=== PATIENT | female | born 1980 | race Caucasian/White ===

== ENCOUNTER 2022-01-13 21:42 | Inpatient (IN) ==
[2022-01-13] MEDS ORDERED: OXYTOCIN 30 UNITS/500 ML BAG IV PRN ×2 (22:02→23:44)
[2022-01-13] MEDS ORDERED: LIDOCAINE 1% LOCAL 20 ML VIAL INFIL PRN (22:02)
--- NOTE | 2022-01-13 22:09 | History & Physical Report ---
Date of Service January 13, 2022 Assessment & Plan (1) with 39 completed weeks gestation: (2) Normal labor: Plan admit for labor, fetus category one. desires epidural. arom/pit as indicated . anticipate . History of Present Illness Chief Complaint: contractions Primary Care Provider: ERNIE Reid Patient is a 41yowf with iup at 39 1/7 weeks who presents with increasing contractions. some pink d/c, no lof. +fm. and Delivery Plans AMA >35 weekly NST's @ 36 weeks Hx Thyroid cancer with thyroidectomy 2020 TFT's q 4 weeks Marginal cord insertion OB Labs: Blood Type O Positive 07/07/21 Antibody Screen NEGATIVE 07/07/21 Hemoglobin 10.8 g/dl (12.0-16.0) L 10/27/21 Hematocrit 31.1 % (34.1-44.9) L 10/27/21 Mean Corpuscular Volume 90.8 fL (80-100) 07/07/21 Platelet Count 281 K/uL (130-400) 07/07/21 Rubella IgG Antibody Immune (Immune) 07/07/21 Rapid Plasma Reagin Nonreactive (Nonreactive) 07/07/21 Hepatitis B Surface Antigen. NON-REACTIVE (NON-REACTIVE) 07/07/21 Hepatitis C Antibody (EIA) NON-REACTIVE (NON-REACTIVE) 07/07/21 HIV (1&2) Ag and Ab Confirmation NON-REACTIVE (NON-REACTIVE) 07/07/21 Glucose 1 Hour 50 gm Load 181 mg/dl (70-130) H 10/27/21 Maternal Serum Alpha Fetoprotein 59.1 ng/mL 08/03/21 OB Optional Labs: Chlamydia trachomatis RNA NOT DETECTED (NOT DETECTED) 07/07/21 Neisseria gonorrhoeae RNA NOT DETECTED (NOT DETECTED) 07/07/21 Thyroid Stimulating Hormone (TSH) 0.272 uIu/ml (0.300-4.500) L 11/24/21 Alpha Fetoprotein Triple Screen SEE NOTE 08/03/21 Labs Reviewed: cf/sma-negative--mln cfdna-low risk--mln -neg afp - sln gbs neg Allergies Allergy/AdvReac Type Severity Reaction Status Date / Time No Known Allergies Allergy Verified 01/11/22 10:37 Home Medications Medication Instructions Recorded Confirmed Type prenat.vits,quinn,vbw-iegp-tjfqo 1 tab PO DAILY 06/29/21 01/11/22 History levothyroxine 137 mcg tablet 137 mcg PO .qod #45 tabs 12/02/21 01/11/22 Rx levothyroxine 150 mcg tablet 150 mcg PO .qod #45 tabs 12/02/21 01/11/22 Rx Patient History Medical History Fatigue History of chicken pox Hx of papillary thyroid carcinoma Hypothyroidism, postablative Thyroid cancer Surgical History S/P cholecystectomy Status post thyroidectomy Family History Father Heart disease Diabetes Dementia Mother Arthritis with psoriasis Denies family history of Ovarian cancer Breast cancer Colorectal cancer Social History Smoking Status: Never smoker marital status: Single marital status details: shikha Mclean (35) [phone] Current Living Situation: Family Current Living Situation Comment: lives with 3 children, cats-kids changing litter current occupational status: employed current occupation: [employer] Feels Safe at Home: Yes OB History Past Pregnancies Del. Date GA wks Lbr Lgth wt Sex Type del Anes Place Del Prov ? Comment 10/30/03 42 7 9 F None [facility] No induced post dates 10/27/06 40 2 7-14 F None Other [facility] No 11/07/10 40 6 8-14 M None [facility] No [facility] History noncontributory Physical Exam Constitutional: WD/WN, vitals as above Gastrointestinal (Abdomen): soft, gravid, nt Psychiatric: A+Ox3, euthymic affect Genitourinary: cx--5-6/100/-2/ bulging bag us--cephalic toco--q3-5min efm--150s with mod variability, accels to 160s, no decels Coding Level of Care Code None Diagnoses with 39 completed weeks gestation Z3A.39 Normal labor O80; Z37.9
[2022-01-13] MEDS: LACTATED RINGER'S 1,000 ML IV PRN ×2 (22:20→23:25)
[2022-01-13 22:57] LABS: Hematocrit (blood only) 32.5 % (34.1-44.9); Hemoglobin 11.4 g/dl (12.0-16.0); Mean Corpuscular Hemoglobin 31.8 pg (25.0-34.0); Mean Corpuscular Hgb Conc 35.1 g/dL (32.0-36.0); Mean Corpuscular Volume 90.5 fL (80.0-100.0); Mean Platelet Volume 10.9 fL (9.4-12.3); Platelet Count 238 K/uL (130-400); RDW Coefficient of Variation 13.5 % (11.5-14.5); RDW Standard Deviation 44.3 fL (36.4-46.3); Red Blood Count 3.59 M/uL (3.93-5.22); White Blood Count 10.54 K/ul (4.8-10.8)
[2022-01-13] MEDS ORDERED: ePHEDrine sulfate 50 MG/ML AMP ONE (23:01)
[2022-01-13] MEDS ORDERED: SODIUM CHLORIDE 0.9% INJ 10 ML VIAL ONE (23:02)
[2022-01-13] MEDS ORDERED: LIDOCAINE 2%/EPINEPHRINE 1:200,000 20 ML SDV ONE (23:02)
[2022-01-13] MEDS ORDERED: fentaNYL citrate 100 MCG/2 ML VIAL ONE (23:02)
[2022-01-13] MEDS ORDERED: BUPIVACAINE 0.25% 30 ML VIAL ONE (23:02)
[2022-01-13] MEDS ORDERED: fentaNYL 2MCG/ML ROPIVACAINE 1.25MG/ML 100 ML BAG EPI ONE (23:03)
[2022-01-13] MEDS ORDERED: diphenhydrAMINE 50 MG/ML VIAL IV PRN (23:17)
[2022-01-13] MEDS ORDERED: fentaNYL 2MCG/ML ROPIVACAINE 1.25MG/ML 100 ML BAG EPI PRN (23:17)
[2022-01-13] MEDS ORDERED: NALBUPHINE HCL INJ 10 MG/ML AMP IV PRN (23:17)
[2022-01-13] MEDS ORDERED: ePHEDrine sulfate 50 MG/ML AMP IV PRN (23:17)
[2022-01-13] MEDS ORDERED: NALOXONE HCL 0.4 MG/1 ML VIAL/CARP IV PRN (23:17)
[2022-01-13] MEDS ORDERED: ONDANSETRON INJ 2 MG/ML 2 ML VIAL IV PRN (23:17)
[2022-01-13] MEDS ORDERED: NALOXONE HCL 1 MG in SODIUM CHLORIDE 0.9% 1000ML 1,000 ML IV PRN (23:17)
--- NOTE | 2022-01-13 23:22 | Anesthesiology Consultation ---
Date of Service January 13, 2022 Assessment & Plan Chart Review Chart Review: Patient NOT seen in Pre Admission Testing and Acceptable Risk for Labor Epidural Consults Requested none ASA ASA2 Proposed Anesthesia Anesthesia Type: Labor Epidural and CSE Risk / Benefits Reviewed With: PT / POA / Parent / Guardian, Accepts Plan and Informed Consent Obtained History Height/Weight Height: 5 ft 7 in Weight: 83.121 kg Allergies Allergy/AdvReac Type Severity Reaction Status Date / Time No Known Allergies Allergy Verified 01/11/22 10:37 Medications Home Medications Medication Instructions Recorded Confirmed Last Taken prenat.vits,quinn,gyb-lybp-ogcsa 1 tab PO DAILY 06/29/21 01/11/22 Unknown levothyroxine 137 mcg tablet 137 mcg PO .qod #45 tabs 12/02/21 01/11/22 Unknown levothyroxine 150 mcg tablet 150 mcg PO .qod #45 tabs 12/02/21 01/11/22 Unknown NPO Date Last Intake of Fluids: 01/13/22 Time Last Intake of Fluids: 21:00 Date Last Intake of Solids: 01/13/22 Time Last Intake of Solids: 18:00 Past Medical History Medical History Fatigue History of chicken pox Hx of papillary thyroid carcinoma Hypothyroidism, postablative Thyroid cancer Exercise / Class Metabolic Activity II 4-5 Yardwork/Stairs/Walk up hill Past Family History Family History Father Heart disease Diabetes Dementia Mother Arthritis with psoriasis Denies family history of Ovarian cancer Breast cancer Colorectal cancer Past Surgical History Surgical History S/P cholecystectomy Status post thyroidectomy Past Anesthesia History No Hx of Anesthesia Complications and No Family Hx of Anesthesia Complications History of PONV No Hx of PONV and No Hx of Motion Sickness Social History Smoking Status: Never smoker Do You Dip or Chew Tobacco: No Hx Alcohol Use: No Hx Substance Use: No substance use type: does not use Review of Systems no chest pain or sob Physical Exam Vital Signs Last Vital Signs Temp 37.4 C 01/13/22 22:00 Pulse 91 H 01/13/22 23:19 Resp 20 01/13/22 22:00 BP 138/80 01/13/22 22:07 Pulse Ox 100 01/13/22 23:19 ENMT Mouth: no TMJ abnormality Thyromental Distance: > or= 3.5 Finger Breadths Mallampati Class: II Neck normal visual inspection Respiratory normal respiratory effort Auscultation: lungs clear to auscultation bilaterally Cardiovascular Rate/Rhythm: regular rate and regular rhythm Musculoskeletal Spine: normal cervical ROM Neurologic moves all extremities Psychiatric Orientation: alert and oriented x 3 Testing Laboratory Results 01/13/22 22:20
[2022-01-14] MEDS ORDERED: DIPHTHERIA/TETANUS/PERTUSSIS 0.5 ML SYR/VIAL IM ONE (01:31)
[2022-01-14] MEDS ORDERED: OXYTOCIN 30 UNITS/500 ML BAG IV PRN (01:31)
[2022-01-14] MEDS ORDERED: HYDROCORTISONE ACETATE 25 MG SUPP PR PRN (01:31)
[2022-01-14] MEDS ORDERED: ACETAMINOPHEN 325 MG TAB PO PRN (01:31)
[2022-01-14] MEDS ORDERED: bisacodyL 10 MG SUPP PR PRN (01:31)
[2022-01-14] MEDS ORDERED: oxyCODONE/ACETAMINOPHEN 5mg/325mg TAB PO PRN (01:31)
[2022-01-14] MEDS ORDERED: BENZOCAINE 20% AER SPR 82.5 GM CAN EXT PRN (01:31)
--- NOTE | 2022-01-14 01:35 | Delivery Summary ---
Vaginal Delivery Summary Date of Service January 14, 2022 Vaginal Delivery Summary and 2nd Degree LAC (bilateral labial) Pre-operative Diagnosis: at39 2/7 weeks labor Post-operative Diagnosis: same Procedure: epidural srom second degree lac and bilateral labial lacs and repair. EBL: 300cc Anesthesia: epidural Procedure: Patient presented in active labor at 5-6cm. Underwent epidural and srom for clear fluid. The patient pushed for 9 minutes to deliver a viable male infant in joshua position. The rest of the was then delivered without difficulty. The baby was vigorous. The nose and mouth were again bulb suctioned and the was placed in the maternal abdomen for drying and attention. Cord was clamped and cut at one minute of life. Cord blood and segment obtained. Placenta delivered spontaneous, intact with a three vessel cord. Cervix/sulci/rectum were intact. A seond degree perineal laceration and bilateral labial lacs were repaired in the normal standard fashion. Hemostasis obtained with dilute pitocin and fundal massage. Apgars were 8/9. Mother and baby doing well at the end of the delivery. [facility] [place] Vaginal Delivery Charge Delivery Type Details: and 2nd Degree LAC (bilateral labial)
[2022-01-14] MEDS: IBUPROFEN 600 MG TAB PO PRN ×3 (02:26→15:02)
--- NOTE | 2022-01-14 07:23 | Obstetrical Progress Note ---
Date of Service January 14, 2022 Assessment & Plan (1) Vaginal delivery: Plan Doing well, routine care. Subjective Ambulation: ambulating normally Voiding: no voiding problems Diet Tolerance:: regular diet Lochia:: Small Feeding Type:: breast feeding bottom sore Physical Exam Constitutional WD/WN, vitals as above Cardiovascular Extremities: + edema (tr); no calf tenderness Gastrointestinal (Abdomen) soft, nt, nd, ff/nt at u Psychiatric A+Ox3, euthymic affect Results & Data ([facility]) Vital Signs (Past 12 Hours) Vital Signs Temp Pulse Pulse Resp BP BP Pulse Ox 01/14/22 05:00 36.6 C 88 18 126/61 01/14/22 03:45 36.6 C 16 01/14/22 01:30 16 01/14/22 00:00 37.1 C 16 01/13/22 22:00 37.4 C 90 20 138/80 01/14/22 03:31 81 121/84 01/14/22 03:16 81 111/65 01/14/22 03:01 80 124/58 L 01/14/22 02:46 75 125/58 L 01/14/22 02:31 85 144/60 H 01/14/22 02:16 86 127/63 01/14/22 02:01 90 135/74 01/14/22 01:46 88 128/60 01/14/22 01:33 89 130/75 01/14/22 01:29 87 98 01/14/22 01:28 102 H 148/57 H 93 01/14/22 01:24 102 H 98 01/14/22 01:23 88 150/72 H 01/14/22 01:22 96 H 142/67 H 01/14/22 01:19 91 H 97 01/14/22 01:14 86 98 01/14/22 01:15 89 143/67 H 01/14/22 01:09 89 98 01/14/22 01:04 110 H 99 01/14/22 01:00 109 H 164/76 H 01/14/22 00:59 97 H 99 01/14/22 00:55 95 H 133/69 01/14/22 00:54 87 100 01/14/22 00:49 87 100 01/14/22 00:50 100 H 132/73 01/14/22 00:46 93 H 134/75 01/14/22 00:44 82 100 01/14/22 00:39 104 H 98 01/14/22 00:40 90 145/71 H 01/14/22 00:34 90 97 01/14/22 00:35 76 132/69 01/14/22 00:31 77 140/69 01/14/22 00:29 82 98 01/14/22 00:26 78 144/73 H 01/14/22 00:24 80 100 01/14/22 00:22 86 150/74 H 01/14/22 00:19 84 98 01/14/22 00:16 80 124/60 01/14/22 00:14 85 100 01/14/22 00:15 83 135/64 01/14/22 00:10 104 H 01/14/22 00:09 82 96 01/14/22 00:10 85 133/59 L 92 01/14/22 00:04 82 99 01/14/22 00:05 88 137/68 01/14/22 00:00 91 H 132/70 01/13/22 23:59 88 98 01/13/22 23:57 89 134/61 01/13/22 23:54 81 99 01/13/22 23:49 104 H 100 01/13/22 23:50 101 H 135/71 01/13/22 23:46 86 129/63 01/13/22 23:44 102 H 98 01/13/22 23:41 85 129/64 01/13/22 23:39 104 H 99 01/13/22 23:34 96 H 99 01/13/22 23:35 109 H 133/75 01/13/22 23:32 86 132/76 01/13/22 23:29 89 133/78 99 01/13/22 23:24 99 H 99 01/13/22 23:19 91 H 100 01/13/22 22:07 90 138/80 O2 Del Method 01/14/22 05:00 Room Air 01/14/22 03:45 01/14/22 01:30 01/14/22 00:00 01/13/22 22:00 01/14/22 03:31 01/14/22 03:16 01/14/22 03:01 01/14/22 02:46 01/14/22 02:31 01/14/22 02:16 01/14/22 02:01 01/14/22 01:46 01/14/22 01:33 01/14/22 01:29 01/14/22 01:28 01/14/22 01:24 01/14/22 01:23 01/14/22 01:22 01/14/22 01:19 01/14/22 01:14 01/14/22 01:15 01/14/22 01:09 01/14/22 01:04 01/14/22 01:00 01/14/22 00:59 01/14/22 00:55 01/14/22 00:54 01/14/22 00:49 01/14/22 00:50 01/14/22 00:46 01/14/22 00:44 01/14/22 00:39 01/14/22 00:40 01/14/22 00:34 01/14/22 00:35 01/14/22 00:31 01/14/22 00:29 01/14/22 00:26 01/14/22 00:24 01/14/22 00:22 01/14/22 00:19 01/14/22 00:16 01/14/22 00:14 01/14/22 00:15 01/14/22 00:10 01/14/22 00:09 01/14/22 00:10 01/14/22 00:04 01/14/22 00:05 01/14/22 00:00 01/13/22 23:59 01/13/22 23:57 01/13/22 23:54 01/13/22 23:49 01/13/22 23:50 01/13/22 23:46 01/13/22 23:44 01/13/22 23:41 01/13/22 23:39 01/13/22 23:34 01/13/22 23:35 01/13/22 23:32 01/13/22 23:29 01/13/22 23:24 01/13/22 23:19 01/13/22 22:07
[2022-01-14] MEDS ORDERED: LEVOTHYROXINE SODIUM 137 MCG TABLET PO ONE (07:24)
[2022-01-14 07:42] LABS: Hematocrit (blood only) 31.1 % (34.1-44.9); Hemoglobin 10.9 g/dl (12.0-16.0)
[2022-01-14] MEDS: PRENATAL VITAMIN 1 TAB PO SCH (08:25)
[2022-01-14] MEDS: DOCUSATE SODIUM 100 MG CAP PO SCH (08:25)
--- NOTE | 2022-01-14 09:11 | Anesthesia Procedure Note ---
Date of Service January 14, 2022 Anesthesia Post Epidural Note Vital Signs Vital Signs: Temp Pulse Resp BP Pulse Ox O2 Del Method 36.6 C 88 18 126/61 98 01/14/22 05:00 01/14/22 05:00 01/14/22 05:00 01/14/22 05:00 01/14/22 01:29 01/14/22 05:00 Pain Intensity Abdomen: Pain Intensity: 0 Vaginal: Pain Intensity: 3 Notes Mental Status: alert / awake / arousable and participated in evaluation Nausea / Vomiting: adequately controlled Pain: adequately controlled Airway Patency, RR, SpO2: stable & adequate BP & HR: stable & adequate Hydration State: stable & adequate Neuraxial Anesthesia: was administered and sensory block resolved Anesthetic Complications: no major complications apparent and Pt Satisfied with anesthetic care Epidural: Removed without complications and With tip intact
[2022-01-15] MEDS: DOCUSATE SODIUM 100 MG CAP PO SCH ×2 (00:53→07:50)
[2022-01-15] MEDS: IBUPROFEN 600 MG TAB PO PRN ×2 (05:08→11:56)
--- NOTE | 2022-01-15 05:37 | Obstetrical Progress Note ---
Date of Service <Halina Barnett, DO - Last Filed: 01/15/22 06:59> January 15, 2022 Assessment & Plan <Halina Barnett, DO - Last Filed: 01/15/22 06:59> (1) Vaginal delivery: continue OOB, ambulation, diet as tolerated (2) Hypothyroidism, postablative: Continue levothyroxine. She alternates does every other day with 137mcg and 150mcg. <Lor Hidalgo, DO - Last Filed: 01/15/22 08:02> (1) Vaginal delivery: (2) Hypothyroidism, postablative: Subjective <Halina Barnett, DO - Last Filed: 01/15/22 06:59> Pratima is a 41 y/o female who is now PPD # 1 following spontaneous vaginal delivery at 39 2/7 weeks. Reports feeling well overall this morning. Mild abdominal cramping pain well managed on analgesics. Voiding. Tolerating meals overnight and able to ambulate some. Some persistent lochia with some improvement this morning. Breast feeding and supplementing with formula. Review of Systems Denies fever, chills, sweats Denies shortness of breath, difficulty breathing, chest pain, palpitations, chest pressure. Denies breast pain. Denies dysuria. Denies headache or changes in vision. Physical Exam <Halina Barnett, DO - Last Filed: 01/15/22 06:59> General: Alert, oriented. No acute distress. Cardiac: Regular rate and rhythm, no murmurs/rubs/gallops. Respiratory: Clear to auscultation bilaterally a/p, no wheezes/rales/rhonchi. No increased work of breathing. Symmetrical chest rise. No respiratory distress. Abdomen: Soft, nontender, nondistended. Uterus: Uterine fundus firm, palpable 2 cm below umbilicus. Lower Extremities: No lower extremity edema or swelling. No deep calf pain. Krystyna's negative bilaterally. Results & Data ([facility]) <Halina Barnett, DO - Last Filed: 01/15/22 06:59> Vital Signs (Past 12 Hours) Vital Signs Temp Pulse Resp BP Pulse Ox O2 Del Method 01/14/22 23:10 71 18 130/74 97 Room Air 10/20/22 19:16 36.6 C 71 16 114/72 Room Air <Lor Hidalgo DO - Last Filed: 01/15/22 08:02> Co-Signing Physician Notes Resident Physician Supervision Note: I interviewed and examined the patient. Discussed with Dr. Barnett and agree with findings and plan as documented in the note. Any exceptions or clarifications are listed here: PPD1 doing well. Desires DC home, reviewed DC instructions. Documented By: Lor Hidalgo DO Resident Activity Tracking <Halina Barnett, - Last Filed: 01/15/22 06:59> Resident Involvement: Resident Care Provided Care Provided: OB Delivery (Post )
[2022-01-15] MEDS ORDERED: LEVOTHYROXINE SODIUM 150 MCG TABLET PO ONE (06:30)
[2022-01-15] MEDS: PRENATAL VITAMIN 1 TAB PO SCH (07:50)
[2022-01-15] MEDS ORDERED: bisacodyL 5 MG TABEC PO SCH (20:00)
== END 2022-01-15 14:30 | disposition home or self-care (01) | DRG 807 ==
LOC: OPB 21:42 → 4S1 21:44 → 4E1 01-14 04:55